=== PATIENT | female | born 1965 | race Caucasian/White ===

== ENCOUNTER → 2020-09-16 | Day surgery (SDC) | payer MEDICARE, OTHER ==
[~2020-09-16] MED LIST: ASPI-630 PO; LIDOCAINE 2%/EPI 1:100,000 20 ML VIAL. IJ ONE; LIDOCAINE 2%/EPI 1:100,000 20 ML VIAL. ONE; MVI; WATER FOR INJECTION,STERILE 10 ML IJ ONE; ceFAZolin SODIUM 1 GM VIAL ONE; ceFAZolin SODIUM IV Push 1 GM VIAL. IVP ONE; fish oil; flaxseed; loratadine; synthroid
[2020-09-16 10:22] VITALS: BP 137/78
--- NOTE | 2020-09-16 13:21 | OP ---
DATE OF SURGERY: 09/16/2020 PREOPERATIVE DIAGNOSIS: Chronic ulcer of the left surface of the tongue. POSTOPERATIVE DIAGNOSIS: Chronic ulcer of the left surface of the tongue. PROCEDURE PERFORMED: Excisional biopsy of the tongue ulcer. INDICATIONS: Persistence of an ulceration beneath the tongue, which has not healed with conservative measures. ANESTHESIA: Local anesthetic. ESTIMATED BLOOD LOSS: Less than 1 mL. DESCRIPTION OF PROCEDURE: The patient was brought to the operating room. She was placed on the operating room table in supine position and made comfortable. Her mouth was examined and the site of the ulcer was then marked with marking pen, after which it was injected with 1% lidocaine with epinephrine and a brief time period was allowed to assure that there was a total anesthesia of the operative field. When that was confirmed by the patient, the tongue was retract to the right exposing the marked ulceration. A fusiform incision was created with a #15 knife blade. The specimen was excised and then submitted for pathology evaluation. Bleeding was minimal. Three well placed 3-0 chromic sutures were efficient to control the bleeding and also to close the wound. At the conclusion, a brief period of observation was observed and then the patient tongue was reevaluated. There was not any indication of swelling, airway obstruction and there was no bleeding at the conclusion. The patient was then transported to the recovery room and then discharged home with instructions for followup, diet and pain management. JOHANNY DR: Gustavo TID: [id number]
--- NOTE | 2020-09-17 19:13 | PATHOLOGY ---
[facility] Accession Number: [id number] . 01 Material submitted: . tongue - LEFT TONGUE ULCER BIOPSY. Modifiers: left . 01 Clinical history: . LEFT TONGUE ULCER BIOPSY OF LEFT TONGUE ULCER . 02 Diagnosis: Squamous mucosa, submucosa, and skeletal muscle tissue, left tongue ulcer biopsy: - Mucosal ulceration with marked acute and chronic inflammation, and with basilar epithelial atypia of squamous mucosa bordering ulcer. (JPM:delonte; 09/17/2020) MBR 09/17/2020 1806 Local . 02 Comment: There are no viral inclusions identified in the area of ulceration. There is focal prominent basilar epithelial atypia of squamous mucosa bordering the ulcer. However, there is no definitive evidence of malignancy. (JPM:delonte; 09/17/2020) . 02 Electronically signed: . Pradeep Galvan MD, Pathologist NPI- [id number] . 01 Gross description: . The specimen is received in formalin, labeled "Aneta Miller, left tongue ulcer biopsy" received as one fragment of soft russo tissue measuring up to 0.5 cm. Entirely submitted in A1.([facility]; 09/16/2020) ARON/ARON 09/17/2020 1707 Local . 02 Pathologist provided ICD-10: K14.0 . 02 CPT . 105481 Specimen Comment: A courtesy copy of this report has been sent to [phone] Specimen Comment: Report sent to Performed at: 01 [facility] [address], [place] [id number] MD Yemi Garcia MD Phone: [phone] Performed at: 02 [facility] [address], [place] [id number] MD Pradeep Galvan MD Phone: [phone]
--- NOTE | 2020-10-02 09:55 | OP ---
DATE OF SURGERY: 09/16/2020 ADDENDUM PREOPERATIVE DIAGNOSIS: Persistent ulcer of the left side of the underneath surface of the tongue. POSTOPERATIVE DIAGNOSIS: Persistent ulcer of the left side of the underneath surface of the tongue. PROCEDURE PERFORMED: Excisional biopsy of a tongue ulcer. INDICATIONS: Persistence of this lesion despite conservative methods of resolution and a concern about neoplastic development. The anesthesia was attended local. The estimated blood loss is less than 10 mL. DESCRIPTION OF PROCEDURE: The patient was brought to the operating room, placed on the operating table in supine position. She was given sedative medication and the lesion was then examined. It was injected around the periphery with 1% lidocaine with epinephrine after it had been adequately marked to delineate wound edges. The wound edges of the lesion were at the greatest diameter 0.5 cm and at the greatest distance, it was 0.75 cm. After adequate anesthesia was achieved, an excision border was created that was 1 cm in length and in diameter, which was used to completely excise the lesion. The depth of the lesion extended to the muscle border where a portion of the muscle was excised and submitted for pathology examination. Bleeding was controlled with light pressure. 3-0 chromic 4 sutures were installed. Bleeding was controlled. The patient experienced very minimal discomfort from it and her mouth was suctioned. No bleeding was noted and the procedure was completed. The patient was recovered from her anesthesia and taken to recovery room in stable condition. MADISYN/MORA DR: Gustavo TID: [id number]
--- NOTE | 2020-11-12 20:16 | OP ---
DATE OF SURGERY: 09/16/2020 PREOPERATIVE DIAGNOSIS: Persistent ulcer of the left side of the underneath surface of the tongue. POSTOPERATIVE DIAGNOSIS: Persistent ulcer of the left side of the underneath surface of the tongue. PROCEDURE PERFORMED: Excisional biopsy of a tongue ulceration. This is an excisional biopsy with complete closure using a chromic suture. INDICATIONS: Persistence of a lesion despite conservative methods of resolution and a concern about neoplastic development. DESCRIPTION OF PROCEDURE: The patient was brought to the operating room and placed on the operating room table in the supine position. She was given sedative medication and the lesion underneath the tongue was examined. It was measured and estimated to be a 0.75 cm x 0.5 cm. Local anesthetic was injected, 1% lidocaine with epinephrine was infiltrated into the region underneath the lesion and surrounding tissue. After adequate anesthesia was achieved, excision of the lesion was created, it was 1 cm in length and in diameter and it was used to completely excise the lesion. The depth of the excision extended to the muscular border where a portion of the muscle was excised and submitted for pathology evaluation. Bleeding was controlled with light pressure. A 3-0 chromic suture was installed. The patient experienced minimal discomfort from it and her mouth was suctioned. No active bleeding was occurring. TOÑO DR: Gustavo TID: [id number]
== END | disposition home or self-care (01) ==
LOC: SURG 09:08
PROVIDERS: ATTEND Otolaryngology
DX: K14.0 Glossitis (principal); Z79.899 Other long term (current) drug therapy; Z79.82 Long term (current) use of aspirin; Z72.89 Other problems related to lifestyle
CPT/HCPCS: 41112; 88305; J0690